=== PATIENT | male | born 1975 | race Two or more races ===

== ENCOUNTER 2020-09-08 21:39 | Emergency (ER) | payer SELFPAY ==
[~2020-09-08] VITALS: Ht 170.2 cm; Wt 75.0 kg
[2020-09-08] MEDS ORDERED: IBUPROFEN 600MG TABLET PO ONE (23:30)
[2020-09-09] MEDS ORDERED: IBUP-2029 MT (01:17)
[2020-09-09 02:45] VITALS: BP 150/83
== END 2020-09-09 02:48 | disposition home or self-care (01) ==
LOC: ER 21:39
DX: S39.012A Strain of muscle, fascia and tendon of lower back, initial encounter (principal); E11.9 Type 2 diabetes mellitus without complications; V49.59XA Passenger injured in collision with other motor vehicles in traffic accident, initial encounter; Y93.89 Activity, other specified; Y92.89 Other specified places as the place of occurrence of the external cause; Y99.8 Other external cause status
CPT/HCPCS: 72100; 99283